=== PATIENT | male | born 1950 | race Caucasian/White ===

== ENCOUNTER → 2017-05-10 | Outpatient (CLI) | payer MEDICARE, BC ==
[~2017-05-10] MED LIST: ASPIRIN 32325 MG/TAB PO; ASPIRIN E.C. 8181 MG PO; CLARITIN 1010 MG/TAB PO; COZAAR100 MG PO; FLOVENT 110MCG7.9 GM IH; IMDUR 30MG30 MG/TAB PO; LIPITOR 40MG TA40 MG PO; LIPITOR 80MG80 MG PO; NITROSTAT0.4 MG/TAB SL; NORCO 325 MG-51 TAB PO; PLAVIX 75MG TAB75 MG PO; PRIL40 PO; PROAIR HFA0.09 MG/AC IH; PROTONIX 40MG T40 MG PO; SINGULAIR 110 MG/TAB PO; TOPROL XL 25MG25 MG PO; ZESTRIL 10MG10 MG PO; ZYLOPRIM 300MG300 MG PO
== END ==
LOC: COL.PUL 07:48
DX: R05 Cough (principal)

== ENCOUNTER 2018-05-11 15:50 | Emergency (ER) | payer MEDICARE, BC ==
[~2018-05-11] VITALS: Ht 185.4 cm; Wt 97.7 kg
[2018-05-11 15:55] VITALS: TEMP 99.5
[2018-05-11 16:28] LABS: BASO # 0.1 (0.0-0.2); BASO % 0.6 % (0.0-2.0); EOS # 0.1 (0.0-0.7); GRAN # 10.6 (1.4-6.5); GRAN % 74.6 % (42.2-75.2); HEMATOCRIT 51.3 % (42.0-52.0); HEMOGLOBIN 17.9 g/dl (13.5-18.0); LYMPH # 2.2 (1.2-3.4); LYMPH % 15.1 % (20.0-51.0); MEAN CELL VOLUME 90 fl (80.0-100.0); MEAN CORPUSCULAR HEMOGLOBIN 32 pg (27.0-31.0); MEAN CORPUSCULAR HGB CONC 35 g/dl (33.0-37.0); MEAN PLATELET VOLUME 10.2 fl (7.4-10.4); MONO # 1.2 (0.1-0.6); MONO % 8.4 % (1.7-9.3); PLATELET COUNT 249 K/mm3 (130-400); RED BLOOD COUNT 5.69 M/mm3 (4.20-5.60); REDCELL DISTRIBUTION WIDTH-CV 12.8 % (11.5-14.5)
[2018-05-11] MEDS ORDERED: 00186-0372-20 IH (16:40)
[2018-05-11] MEDS ORDERED: RIOMET500 MG/5 M PO (16:41)
[2018-05-11 16:44] LABS: ALANINE AMINOTRANSFERASE 39 U/L (21-72); ALBUMIN 4.2 gm/dL (3.5-5.0); ALKALINE PHOSPHATASE 98 U/L (50-136); ANION GAP 12 mmol/L (7-16); AST,SGOT 21 U/L (15-37); BLOOD UREA NITROGEN 18 mg/dL (9-20); C-REACTIVE PROTEIN 0.9 mg/dL (0.0-0.9); CALCIUM 9.3 mg/dL (8.4-10.2); CARBON DIOXIDE 25 mmol/L (22-30); CHLORIDE 102 mmol/L (98-107); CREATINE KINASE 57 U/L (55-170); CREATININE, serum 0.98 mg/dL (0.66-1.25); GLUCOSE 170 mg/dL (74-106); POTASSIUM 4.2 mmol/L (3.4-5.0); SODIUM 138 mmol/L (137-145)
[2018-05-11 16:55] LABS: TROPONIN-I < 0.012 ng/mL (0.000-0.034)
[2018-05-11] MEDS ORDERED: OMNICEF 300MG300 MG PO (16:56)
[2018-05-11 17:35] VITALS: BP 138/87; PULSE 78
== END 2018-05-11 17:39 | disposition home or self-care (01) ==
LOC: COL.ER 15:50
PROVIDERS: Emergency Medicine
DX: R68.84 Jaw pain (principal); E11.9 Type 2 diabetes mellitus without complications; J02.9 Acute pharyngitis, unspecified; I25.10 Atherosclerotic heart disease of native coronary artery without angina pectoris; I10 Essential (primary) hypertension; Z86.73 Personal history of transient ischemic attack (TIA), and cerebral infarction without residual deficits; Z88.0 Allergy status to penicillin; Z90.89 Acquired absence of other organs; Z98.890 Other specified postprocedural states; Z79.82 Long term (current) use of aspirin; Z79.02 Long term (current) use of antithrombotics/antiplatelets
CPT/HCPCS: J1885; J7030

== ENCOUNTER 2022-01-30 07:49 | Emergency (ER) | payer MEDICARE, BC ==
[~2022-01-30] VITALS: Ht 182.9 cm; Wt 94.5 kg
[~2022-01-30 07:49] MED LIST changes: +00186-0372-20 IH; +OMNICEF 300MG300 MG PO; +RIOMET500 MG/5 M PO
[2022-01-30 08:11] VITALS: TEMP 98.3
[2022-01-30 08:33] LABS: BASO # 0.1 K/mm3 (0.0-0.2); BASO % 1.1 % (0.0-2.0); EOS # 0.1 K/mm3 (0.0-0.7); EOS % 1.5 % (0.0-4.0); GRAN # 4.4 K/mm3 (1.4-6.5); HEMATOCRIT 48.8 % (42.0-52.0); HEMOGLOBIN 17.2 g/dl (13.5-18.0); LYMPH # 0.7 K/mm3 (1.2-3.4); LYMPH % 11.2 % (20.0-51.0); MEAN CELL VOLUME 91 fl (80.0-100.0); MEAN CORPUSCULAR HEMOGLOBIN 32 pg (27-31); MEAN CORPUSCULAR HGB CONC 35 g/dl (33.0-37.0); MEAN PLATELET VOLUME 10.3 fl (7.4-10.4); MONO # 0.9 K/mm3 (0.1-0.6); PLATELET COUNT 206 K/mm3 (130-400); RED BLOOD COUNT 5.39 M/mm3 (4.20-5.60); REDCELL DISTRIBUTION WIDTH-CV 13.4 % (11.5-14.5)
[2022-01-30 08:55] LABS: ALANINE AMINOTRANSFERASE 26 U/L (0-55); ALBUMIN 3.6 gm/dL (3.4-4.8); ALKALINE PHOSPHATASE 81 U/L (40-150); ANION GAP 10 mmol/L (7-16); AST,SGOT 17 U/L (5-34); BLOOD UREA NITROGEN 13 mg/dL (8-26); CALCIUM 8.9 mg/dL (8.4-10.2); CARBON DIOXIDE 24 mmol/L (23-31); CHLORIDE 105 mmol/L (98-107); CREATININE, serum 0.97 mg/dL (0.72-1.25); GLUCOSE 219 mg/dL (70-99); SODIUM 139 mmol/L (136-145); TOTAL PROTEIN 6.2 gm/dL (6.2-8.1)
[2022-01-30 09:02] LABS: TROPONIN-I < 0.010 ng/mL (0.00-0.033)
[2022-01-30] MEDS ORDERED: PREDNISONE20 MG PO (09:19)
[2022-01-30 09:25] VITALS: BP 158/87; PULSE 99
== END 2022-01-30 09:31 | disposition home or self-care (01) ==
LOC: COL.ER 07:49
PROVIDERS: Personal Emergency Response Attendant
DX: J45.909 Unspecified asthma, uncomplicated (principal)
CPT/HCPCS: J2930; J7050